=== PATIENT | female | born 1970 | race Caucasian/White ===

== ENCOUNTER 2018-10-02 09:41 | Day surgery (SDC) | payer BC ==
[~2018-10-02 09:41] MED LIST: Buffered Lidocaine 0.9% SYRIN* 5 ML/SYR SYRINGE INTRADERM ONE; Dexamethasone TAB* 4 MG PO ONE; DiMENhydriNATE IV* 50 MG/ML VIAL IV PUSH PRN; Famotidine IV* 10 MG/ML 2 ML (20 mg) IV ONE; Morphine VIAL* 4 MG/ML VIAL (1 ml vial) IV PRN; Naloxone* 0.4 MG/ML 1 ML VIAL IV PRN; Ondansetron TAB* 4 MG PO ONE; PROCHLORPERAZINE INJ 5 MG/ML 2 ML VIAL IV PRN; Scopolamine 1.5 mg* PATCH TRANSDERM ONE; fentaNYL* 50 MCG/ML 2 ML VIAL (100 MCG VIAL) IV PRN; oxyCODONE/Acetamin 5/325 MG* TAB PO PRN
[2018-10-02] MEDS ORDERED: Famotidine IV* 10 MG/ML 2 ML (20 mg) ONE (10:20)
[2018-10-02] MEDS ORDERED: Scopolamine 1.5 mg* PATCH ONE (10:20)
[2018-10-02] MEDS ORDERED: Dexamethasone TAB* 4 MG ONE (10:20)
[2018-10-02] MEDS ORDERED: Ondansetron ODT TAB* 4 MG ONE (10:20)
[2018-10-02] MEDS ORDERED: Midazolam* 1 MG/ML 5 ML VIAL (5 MG) ONE (10:39)
[2018-10-02] MEDS ORDERED: fentaNYL* 50 MCG/ML 2 ML VIAL (100 MCG VIAL) ONE ×2 (10:39→14:03)
[2018-10-02] MEDS ORDERED: KETAMINE HCL* 50 MG/ML 10 ML VIAL ONE (10:39)
[2018-10-02] MEDS ORDERED: Lidocain 1% EPI 1:100,000 * 30 ML MDV ONE (11:35)
[2018-10-02] MEDS ORDERED: PROCHLORPERAZINE INJ 5 MG/ML 2 ML VIAL ONE (12:31)
[2018-10-02] MEDS ORDERED: Succinylcholine* 20 MG/ML 10 ML VIAL ONE (12:31)
[2018-10-02] MEDS ORDERED: Propofol* 10 MG/ML 20 ML BTL ONE (12:31)
[2018-10-02] MEDS ORDERED: Morphine VIAL* 4 MG/ML VIAL (1 ml vial) ONE (14:03)
[2018-10-02] MEDS ORDERED: DiMENhydriNATE IV* 50 MG/ML VIAL ONE (14:03)
[2018-10-02 16:08] VITALS: BP 151/99
--- NOTE | 2018-10-02 23:12 | OP ---
DATE OF OPERATION: 10/02/18 - [facility] DATE OF : 66 SURGEON: Peng Ruiz MD KILN [employer] UNLOADER: Trung Hogue MD PRE-OP DIAGNOSIS: Recurring left thyroidal cyst. POST-OP DIAGNOSIS: Recurring left thyroidal cyst. OPERATIVE PROCEDURE: Left thyroid lobectomy under general endotracheal anesthesia. BLOOD LOSS: Less than 5 mL. COMPLICATIONS: None. DISPOSITION: Good. SPECIMEN: Left thyroid lobe. DESCRIPTION OF PROCEDURE: The patient was taken to the operating room and placed in the supine position on the operating table. General anesthesia was induced and she was orotracheally intubated with a NIM's monitoring tube and the NIM's neuromonitoring system was used during the surgery. The ground and reference electrodes were placed. Head was extended, incision demarcated and injected with 1% lidocaine with 1:100,000 epinephrine. She was prepped with Betadine and draped in a sterile fashion. Incision made with a 15-blade through the skin, platysmal muscles. Subplatysmal flaps were raised and then the Amor retractor was placed. Strap muscles were opened at the median raphe and retracted and dissected off of the left thyroid lobe. The superior pedicle was isolated. A clip was placed and then a ligature was used to release this inferior. The thyroid was dissected free using blunt dissection and bipolar dropping the parathyroid into the neck. The isthmus was isolated and released and the thyroid was taken off of the superior trachea. The recurrent laryngeal nerve was found in the tracheoesophageal groove followed superiorly elevating the thyroid gland out of the neck. Herrera's ligament was released and the gland was removed. During the procedure, the NIM's was used with the stimulator to make sure we were following the nerve and the integrity of the nerve was left intact. The wound was irrigated with saline. Hemostasis was ensured. A piece of Surgicel was placed along the trachea. The strap muscles were reapproximated with 3-0 running Vicryl and then deep dermal 3-0 Vicryl were placed and then a running subcuticular 4-0 nylon, Mastisol, and Steri-Strips. The patient tolerated this procedure well, no complications, and transferred to the recovery room in stable condition. [id number]/[facility] #: [id number] [facility]
[2018-10-05] MEDS ORDERED: Scopolamine PATCH Remove* 1 NOTE MISC PATCH OFF ONE (06:00)
== END 2018-10-02 16:10 | disposition home or self-care (01) ==
LOC: OR 09:41
PROVIDERS: ATTEND Otolaryngology
DX: E04.1 Nontoxic single thyroid nodule (principal); J34.81 Nasal mucositis (ulcerative); J30.9 Allergic rhinitis, unspecified
CPT/HCPCS: 88307; A9270-GY; C1776; J0330; J0780; J1240; J2250; J2270; J2704; J3010; J8540